=== PATIENT | female | born 1970 | race Two or more races ===

== ENCOUNTER 2019-04-05 20:18 | Emergency (ER) | payer MEDICAID ==
[~2019-04-05] VITALS: Ht 149.9 cm; Wt 65.8 kg
[2019-04-05 20:30] VITALS: BP 135/94
--- NOTE | 2019-04-05 20:30 | NUR ---
TAKEN TO BED 08 VIA FOR BEDSIDE TRIAGE. ABLE TO AMBULATE TO BED WITH SLOW, STEADY GAIT.
--- NOTE | 2019-04-05 20:53 | NUR ---
48 Y/O FEMALE PRESENTS TO ED, C/O BILAT SHARP KNEE PAIN 11/30. PT STATES PAIN STARTED 3 DAYS AGO WORSENED TODAY. LIMITED ROM AND UNSTEADY GAIT DUE TO PAIN. PT TOOK MOTRIN THIS MORNING WITH LITTLE RELIEF. BILAT STRONG PEDAL PULSES. PT AT STABLE CONDITION. ERMD AWARE. WILL CONTINUE TO MONITOR.
[2019-04-05] MEDS ORDERED: KETOROLAC 30 MG/ML VIAL IM ONE (20:55)
[2019-04-05 21:20] VITALS: BP 129/88
--- NOTE | 2019-04-05 21:20 | NUR ---
PT DISCHARGED WITH PAPERWORK. RX PREDNISONE, NAPROXEN. EDUCATED PT REGARDING MEDICATIONS AND S/E. EDUCATED PT REGARDING D/C DIAGNOSIS AND INSTRUCTIONS. PT VERBALIZED UNDERSTANDING OF TEACHING. TOLD PT TO FOLLOW UP WITH PCP AND WHEN TO RETURN TO ED. PT AT STABLE CONDITION. ABLE TO AMBULATE WITH STEADY GAIT. ALL QUESTIONS ANSWERED.
== END 2019-04-05 21:20 | disposition home or self-care (01) ==
LOC: MED 20:18
DX: M25.561 Pain in right knee (principal); M25.562 Pain in left knee; M19.90 Unspecified osteoarthritis, unspecified site; F17.210 Nicotine dependence, cigarettes, uncomplicated
CPT/HCPCS: 96372; 99283; J1885

== ENCOUNTER 2019-04-19 01:59 | Emergency (ER) | payer MEDICAID ==
[~2019-04-19] VITALS: Ht 149.9 cm; Wt 64.9 kg
[2019-04-19 02:03] VITALS: BP 109/80
--- NOTE | 2019-04-19 02:27 | NUR ---
patient taken by wheelchair to bed 11
--- NOTE | 2019-04-19 02:35 | NUR ---
48 YO F BIB SELF PRESENTS TO ED C/O 01/30 THROBBING LEFT KNEE PAIN ONGOING X MORE THAN 1 MONTH. PT DENIES RECENT TRAUMA/INJURY. WAS SEEN X 2 WEEKS AGO FOR SIMILAR COMPLAINT. SENT HOME WITH NAPROSYN, NO XR TAKEN. PT STATES NAPROSYN PROVIDED TEMPORARY RELIEF BUT IS NO LONGER HELPING. PT STATES SHE CAN NO LONGER WALK WITHOUT SEVERE PAIN. LEFT KNEE APPEARS SWOLLEN, NO REDNESS. PT GRIMACES WITH TOUCH. PMH-- DENIES
[2019-04-19] MEDS ORDERED: KETOROLAC 60 MG/2 ML VIAL IM ONE (02:50)
--- NOTE | 2019-04-19 03:00 | NUR ---
MEDICATED WITH 60 MG IM TORADOL FOR 10/10 KNEE PAIN. WILL REASSESS IN 30 MINS.
--- NOTE | 2019-04-19 03:30 | NUR ---
REPORTS PAIN RELIEF 07/31. TORADOL EFFECTIVE.
--- NOTE | 2019-04-19 04:03 | NUR ---
XRAY AT BEDSIDE.
--- NOTE | 2019-04-19 04:38 | NUR ---
DR. GRAFF REEVAL AT BEDSIDE.
--- NOTE | 2019-04-19 05:00 | NUR ---
PT WAS SHOWN HOW TO USE CRUTCHES, PROPER DEMENSTRATION AND INSTRUCTION WAS SHOWN TO THE PT ON HOW TO USE CRUTCHES FOR WALKING, TURNING, STANDING AND SITTING AND GOING UP AND DOWN STAIRS IF NEEDED TO. PT FELT COMFORTABLE WITH CRUTCHES, HAD NO QUESTIONS ABOUT CRUTCH USE AND DEMENSTRATED PROPER USE OF CRUTCHES UP AND DOWN ER HALLWAY. PT CRUTCHES WERE ADJUSTED TO PT HIEGHT AND [employer] PLACEMENT.
--- NOTE | 2019-04-19 05:05 | NUR ---
VISUALIZED RETURN DEMONSTRATION FOR CRUTCH USE WITHOUT DIFFICULTY.
[2019-04-19 05:15] VITALS: BP 105/75
--- NOTE | 2019-04-19 05:15 | NUR ---
Patient discharged with v/s stable. Written and verbal after care instructions given and explained. Patient alert, oriented and verbalized understanding of instructions. Ambulatory with crutches. All questions addressed prior to discharge. ID band removed. Patient advised to follow up with PMD. Rx of Tramadol given. Patient educated on indication of medication including possible reaction and side effects. Opportunity to ask questions provided and answered.
== END 2019-04-19 05:15 | disposition home or self-care (01) ==
LOC: MED 01:59
DX: M25.562 Pain in left knee (principal); F17.200 Nicotine dependence, unspecified, uncomplicated
CPT/HCPCS: 73562; 96372; 99283; J1885; Q0092

== ENCOUNTER 2020-08-28 21:57 | Emergency (ER) | payer MEDICAID ==
[~2020-08-28] VITALS: Ht 149.9 cm; Wt 90.7 kg
--- NOTE | 2020-08-28 22:02 | NUR ---
TO BED AMBULATORY
--- NOTE | 2020-08-28 22:05 | NUR ---
BIB , 50, FEMALE, C/O BILATERAL LEG EDEMA FOR 1 WEEK, PT STATES THAT SHE DID NOT TAKE ANY MEDS, ALLERGIC TO CODEINE, NO PAST MEDICAL HX. SAFETY MEASURES IN PLACE, KEPT COMFORTABLE.
[2020-08-28] MEDS ORDERED: IBUPROFEN 400 MG TAB PO ONE (22:55)
[2020-08-28 23:11] LABS: BASOPHILS # (AUTO) 0.1 K/uL (0.00-0.22); BASOPHILS % (AUTO) 0.9 % (0.0-2.0); EOSINOPHILS # (AUTO) 0.5 K/uL (0-0.4); EOSINOPHILS % (AUTO) 6.1 % (0.0-4.0); HEMOGLOBIN 13.5 g/dL (12.0-16.0); LYMPHOCYTES # (AUTO) 2.2 K/uL (2.5-16.5); LYMPHOCYTES % (AUTO) 27.1 % (20.5-51.1); MEAN CORPUSCULAR HEMOGLOBIN 29 pg (27-31); MEAN CORPUSCULAR HGB CONC 34 g/dL (33-37); MEAN CORPUSCULAR VOLUME 85.8 fL (80-94); MONOCYTES # (AUTO) 0.7 K/uL (0.8-1.0); MONOCYTES % (AUTO) 8.7 % (1.7-9.3); NEUTROPHILS # (AUTO) 4.6 K/uL (1.8-7.7); NEUTROPHILS % (AUTO) 57.2 % (42.2-75.2); PLATELET COUNT (AUTO) 313 K/uL (140-450); RED BLOOD CELL COUNT(AUTO) 4.66 MIL/uL (4.20-5.40); RED CELL DISTRIBUTION WIDTH 14.4 % (11.6-13.7); WHITE BLOOD COUNT (AUTO) 7.9 K/uL (4.8-10.8)
--- NOTE | 2020-08-28 23:19 | NUR ---
MOTRIN PO GIVEN ORDERED, TOLERATED WELL.
[2020-08-28 23:32] LABS: ALBUMIN 3.5 g/dL (3.4-5.0); ANION GAP 9.2 (8-16); CARBON DIOXIDE 30.9 mmol/L (21-32); CREATININE 0.8 mg/dL (0.6-1.3); POTASSIUM 4.1 mmol/L (3.5-5.1); TOTAL BILIRUBIN 0.3 mg/dL (0.0-1.0)
[2020-08-29] MEDS ORDERED: FUROSEMIDE 40 MG TAB PO ONE (00:15)
[2020-08-29] MEDS ORDERED: FURO-570 PO (00:18)
[2020-08-29] MEDS ORDERED: [UNRECOGNIZED DRUG - CODE] MC (00:18)
--- NOTE | 2020-08-29 00:40 | NUR ---
LASIC PO GIVEN ORDERED, TOLERATED WELL.
[2020-08-29] MEDS ORDERED: HYDROcodone/APAP 5/325 MG 1 TAB TAB PO ONE (00:50)
[2020-08-29] MEDS ORDERED: IBUP-1801 PO (00:54)
--- NOTE | 2020-08-29 00:59 | NUR ---
NORCO PO GIVEN ORDERED, NO A/R NOTED, TOERATED WELL.
[2020-08-29 01:00] VITALS: BP 126/73
--- NOTE | 2020-08-29 01:05 | NUR ---
Patient discharged with v/s stable. Written and verbal after care instructions given and explained. Patient alert, oriented and verbalized understanding of instructions. Ambulatory with steady gait. All questions addressed prior to discharge. ID band removed. Patient advised to follow up with PMD. Rx of LASIX given. Patient educated on indication of medication including possible reaction and side effects. Opportunity to ask questions provided and answered.
== END 2020-08-29 01:05 | disposition home or self-care (01) ==
LOC: MED 21:57
DX: I26.99 Other pulmonary embolism without acute cor pulmonale (principal); M25.561 Pain in right knee
CPT/HCPCS: 36415; 71045; 80053; 83880; 84484; 85025; 85379; 93005; 99285

== ENCOUNTER 2020-10-09 22:02 | Emergency (ER) | payer MEDICAID ==
[~2020-10-09] VITALS: Ht 152.4 cm; Wt 88.0 kg
[~2020-10-09 22:02] MED LIST: FURO-570 PO; IBUP-1801 PO; [UNRECOGNIZED DRUG - CODE] MC
[2020-10-09 22:08] VITALS: BP 139/90
[2020-10-09] MEDS ORDERED: FURO-572 PO (22:59)
[2020-10-09 23:38] VITALS: BP 139/90
== END 2020-10-09 23:38 | disposition home or self-care (01) ==
LOC: MED 22:02
DX: R60.0 Localized edema (principal); Z79.899 Other long term (current) drug therapy
CPT/HCPCS: 99283

== ENCOUNTER 2020-11-26 02:30 | Emergency (ER) | payer MEDICAID ==
[~2020-11-26] VITALS: Ht 152.4 cm; Wt 68.0 kg
[~2020-11-26 02:30] MED LIST changes: +FURO-572 PO
[2020-11-26 02:50] VITALS: BP 145/90
--- NOTE | 2020-11-26 02:57 | NUR ---
PT AMBULATED TO RESTROOM FOR URINE SAMPLE AND BACK TO LOBBY. 1 CRUTCH ASSIST.
--- NOTE | 2020-11-26 04:25 | NUR ---
pt ambulated to chair b with 1 crutch assist.
--- NOTE | 2020-11-26 04:39 | NUR ---
verbal order recieved for ct abdomen/pelvic without contrast. order placed.
--- NOTE | 2020-11-26 04:40 | NUR ---
ERMD EVALUATING PATIENT.
--- NOTE | 2020-11-26 04:45 | NUR ---
LABS DRAWN AND HAND GIVEN TO VALENTINA MCARTHUR TECH.
--- NOTE | 2020-11-26 04:54 | NUR ---
PT TAKEN TO CT VIA W.C.
[2020-11-26 05:13] LABS: BASOPHILS # (AUTO) 0.1 K/uL (0.00-0.22); BASOPHILS % (AUTO) 1.2 % (0.0-2.0); EOSINOPHILS # (AUTO) 0.5 K/uL (0-0.4); EOSINOPHILS % (AUTO) 6.8 % (0.0-4.0); HEMATOCRIT 41.8 % (36-48); HEMOGLOBIN 13.9 g/dL (12.0-16.0); LYMPHOCYTES # (AUTO) 2.3 K/uL (2.5-16.5); LYMPHOCYTES % (AUTO) 29.3 % (20.5-51.1); MEAN CORPUSCULAR HEMOGLOBIN 29 pg (27-31); MEAN CORPUSCULAR HGB CONC 33 g/dL (33-37); MEAN CORPUSCULAR VOLUME 86.6 fL (80-94); MONOCYTES # (AUTO) 0.7 K/uL (0.8-1.0); MONOCYTES % (AUTO) 8.5 % (1.7-9.3); NEUTROPHILS # (AUTO) 4.3 K/uL (1.8-7.7); NEUTROPHILS % (AUTO) 54.2 % (42.2-75.2); PLATELET COUNT (AUTO) 369 K/uL (140-450); RED BLOOD CELL COUNT(AUTO) 4.83 MIL/uL (4.20-5.40); RED CELL DISTRIBUTION WIDTH 14.3 % (11.6-13.7)
[2020-11-26 05:22] LABS: ALBUMIN 3.7 g/dL (3.4-5.0); ANION GAP 13.3 (8-16); CARBON DIOXIDE 29.3 mmol/L (21-32); CREATININE 0.9 mg/dL (0.6-1.3); POTASSIUM 3.6 mmol/L (3.5-5.1); TOTAL BILIRUBIN 0.4 mg/dL (0.0-1.0)
--- NOTE | 2020-11-26 05:36 | NUR ---
PT REQUESTING TO SIT IN LOBBY TO CHARGE PHONE. AMBULATED WITH STEADY GAIT AND USE OF 1 CRUTCH.
[2020-11-26 05:57] VITALS: BP 135/92
--- NOTE | 2020-11-26 05:57 | NUR ---
PT SITTING COMFORTABLY IN LOBBY. Vital Signs within normal limits. Respirations even and unlabored. DENIES PAIN OR DISCOMFORT AT THIS TIME.
--- NOTE | 2020-11-26 07:12 | NUR ---
Patient discharged with v/s stable. Written and verbal after care instructions given and explained. Patient verbalized understanding. Ambulatory with steady gait. All questions addressed prior to discharge. Advised to follow up with PMD.
== END 2020-11-26 07:12 | disposition home or self-care (01) ==
LOC: MED 02:30
DX: T83.092A Other mechanical complication of nephrostomy catheter, initial encounter (principal); Z79.899 Other long term (current) drug therapy; Y92.89 Other specified places as the place of occurrence of the external cause
CPT/HCPCS: 36415; 80053; 81002; 81025; 85025; 99284

== ENCOUNTER 2022-08-17 10:09 | Emergency (ER) | payer MEDICAID ==
[~2022-08-17] VITALS: Ht 149.9 cm; Wt 64.9 kg
[2022-08-17 10:39] VITALS: BP 103/73
--- NOTE | 2022-08-17 11:58 | NUR ---
PT C/O BILAT LEG SWELLING X 5DYS WORSEN TODAY. SAFETY MAINTAINED.
--- NOTE | 2022-08-17 12:00 | NUR ---
UA PREG NEGATIVE.
[2022-08-17] MEDS ORDERED: KETOROLAC 60 MG/2 ML VIAL IM ONE (12:20)
[2022-08-17] MEDS ORDERED: CEPH500C16 PO (12:43)
[2022-08-17] MEDS ORDERED: FURO-572 PO (12:43)
[2022-08-17] MEDS ORDERED: IBUP-2213 PO (12:43)
--- NOTE | 2022-08-17 12:50 | NUR ---
The patient's care was reviewed and supervised by DESTINEE HOWARD RN.
[2022-08-17 13:06] VITALS: BP 110/63
--- NOTE | 2022-08-17 13:08 | NUR ---
Patient discharged with v/s stable. Written and verbal after care instructions given and explained. Patient alert, oriented and verbalized understanding of instructions. Ambulatory with steady gait. All questions addressed prior to discharge. ID band removed. Patient advised to follow up with PMD. Rx of KEFLEX,LASIX,IBUPROFEN given. Patient educated on indication of medication including possible reaction and side effects. Opportunity to ask questions provided and answered.
--- NOTE | 2022-08-17 13:11 | NUR ---
The patient's care was reviewed and supervised by [place] 05 JOEY, RN.
== END 2022-08-17 13:06 | disposition home or self-care (01) ==
LOC: MED 10:09
DX: L03.116 Cellulitis of left lower limb (principal); L03.115 Cellulitis of right lower limb; R60.0 Localized edema; F17.200 Nicotine dependence, unspecified, uncomplicated; Z90.49 Acquired absence of other specified parts of digestive tract; Z79.899 Other long term (current) drug therapy; Z79.1 Long term (current) use of non-steroidal anti-inflammatories (NSAID); Z88.5 Allergy status to narcotic agent
CPT/HCPCS: 96372; 99283; J1885